=== PATIENT | female | born 1965 | race Caucasian/White ===

== ENCOUNTER → 2020-06-26 | Outpatient (CLI) | payer OTHER | LOC: HYPER 08:02 | PROVIDERS: ATTEND Emergency Medicine Emergency Medical Services | DX: L89.153 Pressure ulcer of sacral region, stage 3 (principal); L89.323 Pressure ulcer of left buttock, stage 3; C81.78 Other Hodgkin lymphoma, lymph nodes of multiple sites; R63.4 Abnormal weight loss; E46 Unspecified protein-calorie malnutrition; I10 Essential (primary) hypertension; F41.9 Anxiety disorder, unspecified; F32.9 Major depressive disorder, single episode, unspecified; Z85.820 Personal history of malignant melanoma of skin ==

== ENCOUNTER → 2020-07-10 | Outpatient (CLI) | payer OTHER | LOC: HYPER 07:56 | PROVIDERS: ATTEND Emergency Medicine Emergency Medical Services | DX: L89.153 Pressure ulcer of sacral region, stage 3 (principal); L89.323 Pressure ulcer of left buttock, stage 3; C81.78 Other Hodgkin lymphoma, lymph nodes of multiple sites; R63.4 Abnormal weight loss; E46 Unspecified protein-calorie malnutrition; I10 Essential (primary) hypertension; F41.9 Anxiety disorder, unspecified; F32.9 Major depressive disorder, single episode, unspecified; Z85.820 Personal history of malignant melanoma of skin ==

== ENCOUNTER → 2020-07-24 | Outpatient (CLI) | payer OTHER | LOC: HYPER 07:45 | PROVIDERS: ATTEND Emergency Medicine Emergency Medical Services | DX: L89.323 Pressure ulcer of left buttock, stage 3 (principal); L89.153 Pressure ulcer of sacral region, stage 3; C81.78 Other Hodgkin lymphoma, lymph nodes of multiple sites; R63.4 Abnormal weight loss; E46 Unspecified protein-calorie malnutrition; I10 Essential (primary) hypertension; F41.9 Anxiety disorder, unspecified; F32.9 Major depressive disorder, single episode, unspecified; Z85.820 Personal history of malignant melanoma of skin ==

== ENCOUNTER → 2020-08-25 | Outpatient (CLI) | payer OTHER | LOC: HYPER 07:50 | PROVIDERS: ATTEND Emergency Medicine | DX: L89.323 Pressure ulcer of left buttock, stage 3 (principal); C81.78 Other Hodgkin lymphoma, lymph nodes of multiple sites; L89.159 Pressure ulcer of sacral region, unspecified stage; R63.4 Abnormal weight loss; I10 Essential (primary) hypertension; F41.9 Anxiety disorder, unspecified; F32.9 Major depressive disorder, single episode, unspecified; Z85.820 Personal history of malignant melanoma of skin; Z79.899 Other long term (current) drug therapy ==